=== PATIENT | female | born 1950 | race Caucasian/White ===

== ENCOUNTER → 2018-02-21 | Outpatient (CLI) | payer MEDICARE, BC ==
--- NOTE | 2018-02-21 07:39 | US ---
EXAMINATION TYPE: US kidneys/renal and bladder DATE OF EXAM: 02/21/2018 COMPARISON: CT CLINICAL HISTORY: R31.9 Hematuria. renal cysts per prior CT EXAM MEASUREMENTS: Right Kidney: 10.3 x 4.9 x 3.7 cm Left Kidney: 10.4 x 4.2 x 4.0 cm Post Void Residual Volume: 4.6 mL Right Kidney: parapelvic cyst seen = 1.4 x 1.5 x 0.9cm Left Kidney: mild hydronephrosis especially at upper pole; thin renal cortex Bladder: not fully distended Bilateral Jets seen: yes Normal Post Void Residual: yes IMPRESSION: 1. Mild left-sided hydronephrosis. 2. Right renal parapelvic cyst.
== END | disposition home or self-care (01) ==
LOC: RADUSWWP 06:50
PROVIDERS: ATTEND Internal Medicine Geriatric Medicine
DX: N13.30 Unspecified hydronephrosis (principal); N28.1 Cyst of kidney, acquired
CPT/HCPCS: 76770

== ENCOUNTER 2018-03-14 12:00 | Day surgery (SDC) | payer MEDICARE, BC ==
[2018-03-12 09:49] VITALS: BMI 19.4
[~2018-03-14 12:00] MED LIST: LACTATED RINGERS 1,000 ML IV SCH
[2018-03-14 12:17] VITALS: RESP 16
[2018-03-14] MEDS ORDERED: LIDOCAINE 1% 20 ML VIAL (10MG/ML) FOR IV START INTRADERMA ONE (12:35)
[2018-03-14] MEDS ORDERED: PROPOFOL 10 MG/ML 20 ML VIAL IV ONE (12:36)
--- NOTE | 2018-03-14 12:58 | P.PCN ---
Date of Procedure: 03/14/18 Procedure(s) Performed: BRIEF HISTORY: Patient is a 68-year-old pleasant female, scheduled for an elective colonoscopy as a part of screening for colorectal neoplasia. She does have strong family history of colon cancer diagnosed in her brother and grandfather. PROCEDURE PERFORMED: Colonoscopy. PREOPERATIVE DIAGNOSIS: Screening for colon cancer/family history of colon cancer. IV sedation per Anesthesia. PROCEDURE: After informed consent was obtained, the patient, was brought into the endoscopy unit. IV sedation was administered by Anesthesia under continuous monitoring. Digital rectal examination was normal. Initially the Olympus CF- 160 flexible video colonoscope was then inserted in the rectum, gradually advanced into the cecum without any difficulty. Careful examination was performed as the scope was gradually being withdrawn. Ileocecal valve and the appendiceal orifice were visualized and appeared normal. Prep was excellent. Mucosa of the cecum, ascending colon, transverse colon, descending colon, sigmoid colon, and rectum appeared normal. Scattered sigmoid diverticulosis. Retroflexion was performed in the rectum and no lesions were seen. The patient tolerated the procedure well. IMPRESSION: Normal-appearing colon from rectum to cecum with no evidence of colorectal neoplasia. Scattered sigmoid diverticulosis. RECOMMENDATIONS: Findings of this examination were discussed with the patient as well as his family. She was advised to have a repeat the screening colonoscopy in 5 years because of family history of colon cancer..
[2018-03-14 13:21] VITALS: TEMP 98.6
[2018-03-14 13:22] VITALS: BP 94/60; PULSE 51
== END 2018-03-14 13:48 | disposition home or self-care (01) ==
LOC: ORWHC2ENDO 12:00
PROVIDERS: ATTEND Internal Medicine Gastroenterology
DX: Z12.11 Encounter for screening for malignant neoplasm of colon (principal); K57.30 Diverticulosis of large intestine without perforation or abscess without bleeding; Z80.0 Family history of malignant neoplasm of digestive organs; Z79.899 Other long term (current) drug therapy; Z95.0 Presence of cardiac pacemaker; F39 Unspecified mood [affective] disorder; H40.9 Unspecified glaucoma; R48.0 Dyslexia and alexia; Z88.6 Allergy status to analgesic agent; Z91.012 Allergy to eggs; Z91.011 Allergy to milk products
CPT/HCPCS: J2704; G0105; 45378

== ENCOUNTER → 2018-04-09 | Outpatient (CLI) | payer MEDICARE, BC ==
--- NOTE | 2018-04-09 14:46 | CT ---
EXAMINATION TYPE: CT abdomen pelvis wo/w con DATE OF EXAM: 04/09/2018 HISTORY: Hematuria and unspecified hydronephrosis per order. UTI into right back per patient. CT DLP: 656.30mGycm Automated Exposure Control for Dose Reduction was Utilized. CONTRAST: CT scan of the abdomen and pelvis is performed with oral and without and with IV Contrast, patient in jected with 80 mL of Isovue 300. COMPARISON: CT abdomen pelvis March 03, 2014. Kidney ultrasound February 21, 2018. FINDINGS: LUNG BASES: Partial visualization of pacemaker wires in the right heart system. There is small to tin y inferior pericardial effusion slightly larger versus prior. LIVER/GB: There is 1.2 cm simple appearing thin-walled cyst right hepatic dome axial image 14 series 6 redemonstrated. Interval cholecystectomy changes noted. PANCREAS: No significant abnormality is seen. SPLEEN: No significant abnormality is seen. ADRENALS: No significant abnormality is seen. KIDNEYS: Noncontrast images show no renal calculi bilaterally. Postcontrast images show symmetric cor tical medullary uptake and excretion from both kidneys. There are a few simple appearing cysts lower pole level right kidney axial image 35 series 8. There is mild to moderate fullness of right-sided co llecting system with mild calyceal dilatation. There is anterior axis to the left kidney with mild to moderate left-sided pyelocaliectasis. No disti nct hydroureter is seen. No obvious ureter calculus identified. Bladder is felt within normal limits. BOWEL: Oral contrast reaches level of mid transverse colon. There is no suspicious small or large bow el dilatation. In multiple colonic fecal material is mildly prominent from hepatic flexure through si gmoid colon. Sigmoid colonic diverticulosis is present. UTERUS/ADNEXA: Slightly retroverted uterus is seen. LYMPH NODES: No greater than 1cm abdominal or pelvic lymph nodes are appreciated. OSSEOUS STRUCTURES: Mild to moderate disc space narrowing L2-L3 level is present. OTHER: No significant additional abnormality is seen. IMPRESSION: There is mild to moderate left greater than right bilateral hydronephrosis felt present. There is symmetric cortical medullary uptake and excretion from both kidneys identified. No hydrouret er is present. Consider underlying UPJ strictures. There is no significant change in appearance from the 2014 CT noted. Findings better appreciated on CT versus recent ultrasound.
== END | disposition home or self-care (01) ==
LOC: RADCTMAIN 11:32
PROVIDERS: ATTEND Urology
DX: N13.30 Unspecified hydronephrosis (principal); R31.1 Benign essential microscopic hematuria; Z79.82 Long term (current) use of aspirin; Z91.012 Allergy to eggs
CPT/HCPCS: 82565; 84520; 74178; 36415; Q9967

== ENCOUNTER → 2018-08-12 | Outpatient (CLI) | payer MEDICARE, BC ==
--- NOTE | 2018-08-13 11:19 | MM ---
Reason for exam: screening (asymptomatic). Last mammogram was performed 1 year and 7 months ago. History: Patient is postmenopausal. Took hormonal contraceptives for 7 years beginning at age 16. Physical Findings: A clinical breast exam by your physician is recommended on an annual basis and results should be correlated with mammographic findings. MG 3D Screening Mammo W/Cad Bilateral CC and MLO view(s) were taken. Prior study comparison: January 22, 2017, bilateral MG 3d screening mammo w/cad. October 05, 2015, bilateral MG screening mammo w CAD. The breast tissue is heterogeneously dense. This may lower the sensitivity of mammography. Benign appearing calcifictions in the left breast. No suspicious abnormality. No significant changes when compared with prior studies. ASSESSMENT: Benign, BI-RAD 2 RECOMMENDATION: Routine screening mammogram of both breasts in 1 year.
== END | disposition home or self-care (01) ==
LOC: RADMAMWWP 10:43
PROVIDERS: ATTEND Internal Medicine Geriatric Medicine
DX: Z12.31 Encounter for screening mammogram for malignant neoplasm of breast (principal)
CPT/HCPCS: 77063; 77067

== ENCOUNTER → 2019-04-15 | Outpatient (CLI) | payer MEDICARE, BC ==
--- NOTE | 2019-04-15 11:52 | USB ---
Reason for exam: clinical finding. History: Patient is postmenopausal. Took hormonal contraceptives for 7 years beginning at age 16. Indicated problem(s): lump or thickening in the left breast. Physical Findings: Nurse Summary: Patient complains of left breast pain, upper outer quadrant into axilla, lump intermittent x 2 months (nurse mj). US Breast LT Left complete breast ultrasound includes all four quadrants, the retroareolar region and axilla. Finding demonstrates no cystic or solid lesion seen. These results were verbally communicated with the patient and result sheet given to the patient on 04/15/19. ASSESSMENT: Benign, BI-RAD 2 RECOMMENDATION: Return to routine screening mammogram schedule for both breasts. Manage patient on a clinical basis. Back on schedule for July 2019.
== END | disposition home or self-care (01) ==
LOC: RADUSWWP 10:13
PROVIDERS: ATTEND Internal Medicine Geriatric Medicine
DX: N63.20 Unspecified lump in the left breast, unspecified quadrant (principal)

== ENCOUNTER → 2019-04-15 | Outpatient (CLI) | payer MEDICARE, BC ==
--- NOTE | 2019-04-15 11:44 | XR ---
EXAMINATION TYPE: XR shoulder complete LT DATE OF EXAM: 04/15/2019 CLINICAL HISTORY: History of frozen shoulder with left shoulder pain for 2 months. TECHNIQUE: Three views of the left shoulder are obtained. COMPARISON: None. FINDINGS: Demineralization is present. There is no acute fracture/dislocation evident in the left sh oulder. The acromioclavicular joint appears within normal limits. Distal acromion morphology unremar kable. Mild narrowing glenohumeral joint without significant spurring. Subchondral cystic change sup erolateral humeral head. The visualized ribs are intact and unremarkable. Overlying pacemaker partial ly imaged. IMPRESSION: As above.
== END | disposition home or self-care (01) ==
LOC: RADXRMAIN 11:16
PROVIDERS: ATTEND Internal Medicine Geriatric Medicine
DX: M81.0 Age-related osteoporosis without current pathological fracture (principal); M25.812 Other specified joint disorders, left shoulder

== ENCOUNTER → 2019-09-16 | Outpatient (CLI) | payer MEDICARE, BC ==
[2019-09-16 11:38] LABS: INR 0.9 (<1.2); Partial Thromboplastin Time 23.9 sec (22.0-30.0); Prothrombin Time 9.9 sec (9.0-12.0)
[2019-09-16 16:52] LABS: Cardiolipin IgA Antibody 2.7 U/mL
[2019-09-16 16:53] LABS: Cardiolipin Ab IgG Interp NEGATIVE (NEGATIVE); Cardiolipin Ab IgM Interp NEGATIVE (NEGATIVE); Cardiolipin IgM Antibody 0.4 U/mL
[2019-09-17 13:32] LABS: APTT 40 Sec(s) (<43); Dilute Russell Viper Venom 36 Sec(s) (<44)
== END | disposition home or self-care (01) ==
LOC: LABWHC1 10:11
PROVIDERS: ATTEND Psychiatry & Neurology Neurology
DX: I67.9 Cerebrovascular disease, unspecified (principal); R90.89 Other abnormal findings on diagnostic imaging of central nervous system; I63.9 Cerebral infarction, unspecified
CPT/HCPCS: 36415; 82607; 83090; 85610; 85613; 85652; 85730; 86147; 86618

== ENCOUNTER 2019-10-07 10:26 | Day surgery (SDC) | payer MEDICARE, BC ==
[2019-10-05 18:23] VITALS: BMI 20.2
[~2019-10-07 10:26] MED LIST changes: +LIDOCAINE 1% (10MG/ML) FOR IV START INTRADERMA PRN
[2019-10-07 11:07] VITALS: TEMP 98.2
[2019-10-07] MEDS ORDERED: PROPOFOL 10 MG/ML 20 ML VIAL IV ONE (12:10)
--- NOTE | 2019-10-07 12:31 | P.PCN ---
Date of Procedure: 10/07/19 Procedure(s) Performed: BRIEF HISTORY: Patient is a 69-year-old pleasant white female scheduled for an elective colonoscopy as a part of evaluation of form chronic diarrhea for the last 1 year duration. PROCEDURE PERFORMED: Colonoscopy with random biopsy and snare polypectomy. PREOPERATIVE DIAGNOSIS: Chronic diarrhea of 1 year duration. IV sedation per Anesthesia. PROCEDURE: After informed consent was obtained, the patient, was brought into the endoscopy unit. IV sedation was administered by Anesthesia under continuous monitoring. Digital rectal examination was normal. Initially the Olympus CF-160 flexible video colonoscope was then inserted in the rectum, gradually advanced into the cecum without any difficulty. Careful examination was performed as the scope was gradually being withdrawn. Ileocecal valve and the appendiceal orifice were visualized and appeared normal. Prep was excellent. Mucosa of the cecum appeared normal. In the ascending colon there was a 1 cm flat polyp that was removed by snare polypectomy. Rest of the, ascending colon, transverse colon, descending colon, sigmoid colon, and rectum appeared normal. Random biopsies were done from the descending colon to rule out microscopic/collagenous colitis. Retroflexion was performed in the rectum and no lesions were seen. The patient tolerated the procedure well. IMPRESSION: 1 cm flat ascending colon polyp status post polypectomy Rest of the colon appeared normal RECOMMENDATIONS: Findings of this examination were discussed with the patient as well as her family. She was advised to follow with the biopsy results and she'll be seen in office in 3-4 weeks..
[2019-10-07 13:13] VITALS: BP 110/57; PULSE 58; RESP 18
== END 2019-10-07 13:25 | disposition home or self-care (01) ==
LOC: ORWHC2ENDO 10:26
PROVIDERS: ATTEND Internal Medicine Gastroenterology
DX: K63.5 Polyp of colon (principal); K63.89 Other specified diseases of intestine; K08.409 Partial loss of teeth, unspecified cause, unspecified class; F32.9 Major depressive disorder, single episode, unspecified; F03.90 Unspecified dementia, unspecified severity, without behavioral disturbance, psychotic disturbance, mood disturbance, and anxiety; Z88.1 Allergy status to other antibiotic agents; Z79.899 Other long term (current) drug therapy; Z88.6 Allergy status to analgesic agent; Z90.49 Acquired absence of other specified parts of digestive tract; Z90.89 Acquired absence of other organs; Z98.890 Other specified postprocedural states
CPT/HCPCS: 88305; 45380; 45385; J2704

== ENCOUNTER → 2019-10-09 | Outpatient (CLI) | payer MEDICARE, BC ==
--- NOTE | 2019-10-12 12:02 | MM ---
Reason for exam: screening (asymptomatic). Last mammogram was performed 1 year and 2 months ago. History: Patient is postmenopausal. Took hormonal contraceptives for 7 years beginning at age 16. Physical Findings: A clinical breast exam by your physician is recommended on an annual basis and results should be correlated with mammographic findings. MG 3D Screening Mammo W/Cad Bilateral CC and MLO view(s) were taken. Prior study comparison: August 12, 2018, bilateral MG 3d screening mammo w/cad. January 22, 2017, bilateral MG 3d screening mammo w/cad. The breast tissue is heterogeneously dense. This may lower the sensitivity of mammography. A circumscribed 4mm isodense nodule central left breast not clearly seen previously, suspected cyst. 6 month follow up recommended. Right sided moles redemonstrated. Medial left skin calcifications. ASSESSMENT: Probably benign, BI-RAD 3 RECOMMENDATION: Follow-up diagnostic mammogram of the left breast in 6 months.
== END | disposition home or self-care (01) ==
LOC: RADMAMWWP 14:34
PROVIDERS: ATTEND Internal Medicine Geriatric Medicine
DX: Z12.31 Encounter for screening mammogram for malignant neoplasm of breast (principal)
CPT/HCPCS: 77063; 77067

== ENCOUNTER → 2020-04-12 | Outpatient (CLI) | payer MEDICARE ==
--- NOTE | 2020-04-12 11:55 | MM ---
Reason for exam: follow-up at short interval from prior study. Last mammogram was performed 6 months ago. History: Patient is postmenopausal. Benign excisional biopsy of the right breast. Took hormonal contraceptives for 7 years beginning at age 16. Physical Findings: Nurse did not find any significant physical abnormalities on exam. MG 3D Diag Mammo W/Cad LT CC and MLO view(s) were taken of the left breast. Prior study comparison: October 09, 2019, bilateral MG 3d screening mammo w/cad. August 12, 2018, bilateral MG 3d screening mammo w/cad. The breast tissue is heterogeneously dense. This may lower the sensitivity of mammography. Previous abnormality is less conspicuous. No significant new findings when compared with previous films. These results were verbally communicated with the patient and result sheet given to the patient on 04/12/20. ASSESSMENT: Benign, BI-RAD 2 RECOMMENDATION: Return to routine screening mammogram schedule for both breasts. Back on schedule for September 2020.
== END | disposition home or self-care (01) ==
LOC: RADMAMWWP 10:20
PROVIDERS: ATTEND Internal Medicine Geriatric Medicine
DX: R92.8 Other abnormal and inconclusive findings on diagnostic imaging of breast (principal)
CPT/HCPCS: 77065; G0279; 77061

== ENCOUNTER → 2022-01-31 | Outpatient (CLI) | payer MEDICARE ==
--- NOTE | 2022-02-01 10:19 | MM ---
Reason for Exam: Screening (asymptomatic). Last mammogram was performed 2 year(s) and 4 month(s) ago. Patient History: Menarche at age 10. First Full-Term at age 23. Postmenopausal. Patient has history of breast feeding. Hormonal Contraceptives, starting at age 16 for 7 years. Benign Excisional Biopsy on the right side. Risk Values: Denise 5 year model risk: 2.3%. NCI Lifetime model risk: 5.3%. Prior Study Comparison: 08/12/2018 Bilateral Screening Mammogram, [facility]. 10/09/2019 Bilateral Screening Mammogram, [facility]. 04/12/2020 Left Diagnostic Mammogram, [facility]. Tissue Density: There are scattered fibroglandular densities. Findings: Analyzed By CAD. Chronic nodularity is within the left breast. No suspicious groups of microcalcifications, spiculated or lobular masses, architectural distortion or other secondary signs of malignancy are mammographically apparent. Overall Assessment: Benign, BI-RAD 2 Management: Screening Mammogram of both breasts in 1 year. A negative mammogram report should not preclude additional follow up of suspicious palpable abnormalities. Patient should continue monthly self breast exam. A clinical breast exam by your physician is recommended on an annual basis and results should be correlated with mammographic findings. Electronically signed and approved by: Vishal Seaman D.O. Radiologis
== END | disposition home or self-care (01) ==
LOC: RADMAMWWP 12:48
PROVIDERS: ATTEND Internal Medicine Geriatric Medicine
DX: Z12.31 Encounter for screening mammogram for malignant neoplasm of breast (principal)
CPT/HCPCS: 77063; 77067

== ENCOUNTER 2022-08-10 10:36 | Observation (INO) | payer MEDICARE ==
[2022-08-10 11:17] LABS: Basophils % (A) 0 %; Eosinophils # (A) 0.1 k/uL (0-0.7); Eosinophils % (A) 2 %; HCT 39.8 % (34.0-46.0); HGB 13.5 gm/dL (11.4-16.0); Lymphocytes # (A) 1.3 k/uL (1.0-4.8); Lymphocytes % (A) 22 %; MCH 32.7 pg (25.0-35.0); MCV 96.3 fL (80.0-100.0); Mean Platelet Volume 7.6; Monocytes # (A) 0.3 k/uL (0-1.0); Monocytes % (A) 5 %; Neutrophils # (A) 4.1 k/uL (1.3-7.7); Neutrophils % (A) 68 %; Platelet Count 184 k/uL (150-450); RBC 4.13 m/uL (3.80-5.40); RDW 12.5 % (11.5-15.5)
[2022-08-10 11:29] LABS: Albumin 3.9 g/dL (3.5-5.0); Calcium 8.9 mg/dL (8.4-10.2); Potassium 4.2 mmol/L (3.5-5.1); Total Bilirubin 0.6 mg/dL (0.2-1.3); Total Protein 6.5 g/dL (6.3-8.2)
[2022-08-10 11:39] LABS: Partial Thromboplastin Time 24.1 sec (22.0-30.0); Prothrombin Time 10.4 sec (9.0-12.0)
--- NOTE | 2022-08-10 11:56 | XR ---
EXAMINATION TYPE: XR chest 2V DATE OF EXAM: 08/10/2022 COMPARISON: None HISTORY: 72-year-old female with pain, pressure in chest with exertion TECHNIQUE: PA and lateral views FINDINGS: Left anterior chest wall pacemaker generator with right atrial and ventricular leads. Heart upper francisco its of normal in size. Mild atherosclerotic arch calcifications. Hyperinflation. No consolidation or pleural effusion. Cholecystectomy clips. IMPRESSION: Borderline heart size. 2-lead pacemaker on the left. COPD. Otherwise, no acute process seen.
[2022-08-10] MEDS ORDERED: NITROGLYCERIN OINT 1 INCH/GM PACKET TOPICAL STA (12:29)
[2022-08-10] MEDS ORDERED: ASPIRIN 81 MG PO STA (12:29)
[2022-08-10] MEDS ORDERED: NITROGLYCERIN SL TABS 0.4 MG TAB SUBLINGUAL PRN (12:38)
--- NOTE | 2022-08-10 12:38 | ED ---
General Adult HPI - General Chief complaint: Chest Pain Stated complaint: Chest Pain Time Seen by Provider: 08/10/22 10:40 Source: patient, RN notes reviewed, old records reviewed Mode of arrival: ambulatory Limitations: no limitations - History of Present Illness Initial comments: This is a 72-year-old female presents emergency department stating that she has no history of any cardiac disease no history of diabetes hypertension high cholesterol or smoking history. Patient denies any family history of heart disease. Patient states she was at the gym exercising for about an hour when she stood up after exercising and had significant chest pressure felt like somebody was pushing on her quite uncomfortably. Patient states that last for at least a half an hour. Patient states she was having a little first breath but there was no radiation of the pain. Patient denied any diaphoretic episodes per patient denies any nausea patient presents any recent fever chills or cough per patient denies any pain that was similar in the past per patient denies any swelling to the legs or calf tenderness. Patient denies headache patient denies numbness weakness - Related Data Home Medications Medication Instructions Recorded Confirmed lamoTRIgine [LaMICtal] 200 mg PO HS 10/06/13 10/05/19 traZODone HCL [Desyrel] 50 mg PO HS 10/06/13 10/05/19 LORazepam [Ativan] 1 mg PO DAILY PRN 03/12/18 10/05/19 cycloSPORINE 0.05% OPHTH SOLN 1 applicator BOTH EYES Q12H 03/12/18 10/05/19 [Restasis] Donepezil HCl [Aricept] 10 mg PO HS 10/05/19 10/05/19 Memantine [Namenda] 10 mg PO BID 10/05/19 10/05/19 Multivitamins, Thera [Multivitamin 1 tab PO DAILY 10/05/19 10/05/19 (formulary)] Protandim Supplement 1 tab PO DAILY 10/05/19 Vortioxetine Hydrobromide 5 mg PO DAILY 10/05/19 10/05/19 [Trintellix] Allergies Allergy/AdvReac Type Severity Reaction Status Date / Time aspirin AdvReac Abdominal Verified 08/10/22 10:41 Pain Review of Systems ROS Statement: Those systems with pertinent positive or pertinent negative responses have been documented in the HPI. ROS Other: All systems not noted in ROS Statement are negative. Past Medical History Past Medical History: Blood Disorder, Eye Disorder, Hearing Disorder / Deafness, Skin Disorder Additional Past Medical History / Comment(s): PAST HX OF ANEMIA. Osteoporosis. Hx of Blepharospasm BOTH EYES, GETS BOTOX. GLAUCOMA BILAT EYES, HX SSS, HAS PACEMAKER ([employer]). RECENT UTI-FINISHED ANTIBIOTICS, OLD HX OF NECK INJ 2009, RESOLVED. HAVING DIZZY SPELLS. DYSLEXIC History of Any Multi-Drug Resistant Organisms: None Reported Past Surgical History: Appendectomy, Breast Surgery, Cholecystectomy, Pacemaker, Tonsillectomy, Tubal Ligation Additional Past Surgical History / Comment(s): EXC RT BREAST CYST. UTERINE Polyp REMOVED, COLONOSCOPY Past Anesthesia/Blood Transfusion Reactions: Motion Sickness Type of Cardiac Device: Permanent Pacemaker Device Placement Date:: 10/08/13 Past Psychological History: Anxiety, Bipolar, Depression, Panic Disorder Smoking Status: Never smoker Past Alcohol Use History: Occasional Past Drug Use History: None Reported - Past Family History Brother(s) Family Medical History: Cancer Additional Family Medical History / Comment(s): "1/2 BROTHER"-COLON General Exam - General Exam Comments Initial Comments: GENERAL: Patient is well-developed and well-nourished. Patient is nontoxic and well- hydrated and is in mild distress. ENT: Neck is soft and supple. No significant lymphadenopathy is noted. Oropharynx is clear. Moist mucous membranes. Neck has full range of motion without eliciting any pain. EYES: The sclera were anicteric and conjunctiva were pink and moist. Extraocular movements were intact and pupils were equal round and reactive to light. Eyelids were unremarkable. PULMONARY: Unlabored respirations. Good breath sounds bilaterally. No audible rales rhonchi or wheezing was noted. CARDIOVASCULAR: There is a regular rate and rhythm without any murmurs gallops or rubs. ABDOMEN: Soft and nontender with normal bowel sounds. SKIN: Skin is clear with no lesions or rashes and otherwise unremarkable. NEUROLOGIC: Patient is alert and oriented x3. Cranial nerves II through XII are grossly intact. Motor and sensory are also intact. Normal speech, volume and content. Symmetrical smile. MUSCULOSKELETAL: Normal extremities with adequate strength and full range of motion. No lower extremity swelling or edema. No calf tenderness. LYMPHATICS: No significant lymphadenopathy is noted PSYCHIATRIC: Normal psychiatric evaluation. Limitations: no limitations Course Vital Signs 08/10/22 10:39 Temperature 98.2 F Pulse Rate 82 Respiratory 20 Rate Blood Pressure 104/53 O2 Sat by Pulse 99 Oximetry Medical Decision Making - Medical Decision Making EKG was interpreted by myself shows a paced rhythm at 68 bpm HI interval is 214 QRS is 144 QT interval 441 QTC is 458. Patient's EKG shows no ST segment elevation or depression. Was pt. sent in by a medical professional or institution (, [facility], HEATING REPAIR TECHNICIAN, urgent care, hospital, or alf...) When possible be specific @ -[No] Did you speak to anyone other than the patient for history (EMS, parent, family, police, friend...)? What history was obtained from this source @ - gives most of the history because the patient has dementia Did you review nursing and triage notes (agree or disagree)? Why? @ -[I reviewed and agree with nursing and triage notes] Were old charts reviewed (outside hosp., previous admission, EMS record, old EKG, old radiological studies, urgent care reports/EKG's, alf records)? Report findings @ -Reviewed prior radiological studies prior laboratory work and prior charting. Differential Diagnosis (chest pain, altered mental status, abdominal pain women, abdominal pain men, vaginal bleeding, weakness, fever, dyspnea, syncope, headache, dizziness, GI bleed, back pain, seizure, CVA, palpatations, mental health, musculoskeletal)? @ -MDM diagnosis chest pain EKG interpreted by me (3pts min.). @ -[As above] X-rays interpreted by me (1pt min.). @ -Chest x-ray was interpreted by myself shows no acute abnormality there is a small pleural effusion on the left CT interpreted by me (1pt min.). @ -[None done] U/S interpreted by me (1pt. min.). @ -[None done] What testing was considered but not performed or refused? (CT, X-rays, U/S, labs)? Why? @ -[None] What meds were considered but not given or refused? Why? @ -[None] Did you discuss the management of the patient with other professionals (professionals i.e. [facility] Salgado, HEATING REPAIR TECHNICIAN, lab, RT, psych nurse, clinical social work therapist, press feeder, teacher, public affairs officer, case making machine operator)? Give summary @ -[No] Was smoking cessation discussed for >3mins.? @ -[No] Was critical care preformed (if so, how long)? @ -[No] Were there social determinants of health that impacted care today? How? (Homelessness, low income, unemployed, alcoholism, drug addiction, transportation, low edu. Level, literacy, decrease access to med. care, shelter, rehab)? @ -[No] Was there de-escalation of care discussed even if they declined (Discuss DNR or withdrawal of care, Hospice)? DNR status @ -[No] What co-morbidities impacted this encounter? (DM, HTN, Smoking, COPD, CAD, Cancer, CVA, ARF, Chemo, Hep., AIDS, mental health diagnosis, sleep apnea, morbid obesity)? @ -[None] Was patient admitted / discharged? Hospital course, mention meds given and route, prescriptions, significant lab abnormalities, going to OR and other pertinent info. @ -Shouldn't had significant chest pain earlier today after she was exercising. Patient states the pain lasts about half an hour. Patient had no pain while she was in the emergency department. [facility] and the patient wrote admitting orders I consulted cardiology Undiagnosed new problem with uncertain prognosis? @ -[No] Drug Therapy requiring intensive monitoring for toxicity (Heparin, Nitro, Insulin, Cardizem)? @ -[No] Were any procedures done? @ -[No] Diagnosis/symptom? @ -Chest pain Acute, or Chronic, or Acute on Chronic? @ -Acute Uncomplicated (without systemic symptoms) or Complicated (systemic symptoms)? @ -Complicated Side effects of treatment? @ -[No] Exacerbation, Progression, or Severe Exacerbation? @ -[No] Poses a threat to life or bodily function? How? (Chest pain, USA, MS, pneumonia, PE, COPD, DKA, ARF, appy, cholecystitis, CVA, Diverticulitis, Homicidal, Suicidal, threat to staff... and all critical care pts) @ -Yes this could lead to an MS which could lead to end organ dysfunction secondary to poor perfusion - Lab Data Result diagrams: 08/10/22 11:06 08/10/22 11:06 Lab Results 08/10/22 08/10/22 08/10/22 Range/Units 11:06 11:06 11:06 WBC 6.0 (3.8-10.6) k/uL RBC 4.13 (3.80-5.40) m/uL Hgb 13.5 (11.4-16.0) gm/dL Hct 39.8 (34.0-46.0) % MCV 96.3 (80.0-100.0) fL MCH 32.7 (25.0-35.0) pg MCHC 34.0 (31.0-37.0) g/dL RDW 12.5 (11.5-15.5) % Plt Count 184 (150-450) k/uL MPV 7.6 Neutrophils % 68 % Lymphocytes % 22 % Monocytes % 5 % Eosinophils % 2 % Basophils % 0 % Neutrophils # 4.1 (1.3-7.7) k/uL Lymphocytes # 1.3 (1.0-4.8) k/uL Monocytes # 0.3 (0-1.0) k/uL Eosinophils # 0.1 (0-0.7) k/uL Basophils # 0.0 (0-0.2) k/uL PT 10.4 (9.0-12.0) sec INR 1.0 (<1.2) APTT 24.1 (22.0-30.0) sec Sodium 135 L (137-145) mmol/L Potassium 4.2 (3.5-5.1) mmol/L Chloride 101 (98-107) mmol/L Carbon Dioxide 22 (22-30) mmol/L Anion Gap 12 mmol/L BUN 23 H (7-17) mg/dL Creatinine 1.02 (0.52-1.04) mg/dL Est GFR (CKD-EPI)AfAm 63 (>60 ml/min/1.73 sqM) Est GFR (CKD-EPI)NonAf 55 (>60 ml/min/1.73 sqM) Glucose 96 (74-99) mg/dL Calcium 8.9 (8.4-10.2) mg/dL Total Bilirubin 0.6 (0.2-1.3) mg/dL AST 22 (14-36) U/L ALT 15 (4-34) U/L Alkaline Phosphatase 52 (38-126) U/L Troponin I (0.000-0.034) ng/mL Total Protein 6.5 (6.3-8.2) g/dL Albumin 3.9 (3.5-5.0) g/dL 08/10/22 Range/Units 11:06 WBC (3.8-10.6) k/uL RBC (3.80-5.40) m/uL Hgb (11.4-16.0) gm/dL Hct (34.0-46.0) % MCV (80.0-100.0) fL MCH (25.0-35.0) pg MCHC (31.0-37.0) g/dL RDW (11.5-15.5) % Plt Count (150-450) k/uL MPV Neutrophils % % Lymphocytes % % Monocytes % % Eosinophils % % Basophils % % Neutrophils # (1.3-7.7) k/uL Lymphocytes # (1.0-4.8) k/uL Monocytes # (0-1.0) k/uL Eosinophils # (0-0.7) k/uL Basophils # (0-0.2) k/uL PT (9.0-12.0) sec INR (<1.2) APTT (22.0-30.0) sec Sodium (137-145) mmol/L Potassium (3.5-5.1) mmol/L Chloride (98-107) mmol/L Carbon Dioxide (22-30) mmol/L Anion Gap mmol/L BUN (7-17) mg/dL Creatinine (0.52-1.04) mg/dL Est GFR (CKD-EPI)AfAm (>60 ml/min/1.73 sqM) Est GFR (CKD-EPI)NonAf (>60 ml/min/1.73 sqM) Glucose (74-99) mg/dL Calcium (8.4-10.2) mg/dL Total Bilirubin (0.2-1.3) mg/dL AST (14-36) U/L ALT (4-34) U/L Alkaline Phosphatase (38-126) U/L Troponin I <0.012 (0.000-0.034) ng/mL Total Protein (6.3-8.2) g/dL Albumin (3.5-5.0) g/dL Disposition Clinical Impression: Chest pain Disposition: ADMITTED IP TO THIS HOSP Referrals: Kevin Euceda MD [Primary Care Provider] - 1-2 days Time of Disposition: 12:38
[2022-08-10] MEDS: NITROGLYCERIN OINT 1 INCH/GM PACKET TOPICAL SCH (18:20)
[2022-08-10] MEDS: SODIUM CHLORIDE 0.9% 1,000 ML IV SCH (21:50)
[2022-08-11 00:33] VITALS: TEMP 98.1
[2022-08-11] MEDS: NITROGLYCERIN OINT 1 INCH/GM PACKET TOPICAL SCH ×3 (00:35→12:16)
[2022-08-11] MEDS ORDERED: lamoTRIgine 100 MG TAB PO SCH (01:06)
[2022-08-11] MEDS ORDERED: ACETAMINOPHEN TAB 325 MG TAB PO PRN (01:07)
[2022-08-11] MEDS ORDERED: ONDANSETRON 4 MG/2 ML VIAL IVP PRN (01:07)
[2022-08-11] MEDS: cycloSPORINE 0.05% OPHTH 0.4 ML DROPERETTE BOTH EYES SCH ×2 (01:29→13:07)
--- NOTE | 2022-08-11 01:55 | P.HPIM ---
History of Present Illness H&P Date: 08/10/22 Chief Complaint: Chest pressure Patient is a 72-year-old female with a known history of sick sinus syndrome and pacemaker placement, follows with cardiology as an outpatient, hearing disorder/deafness, anxiety/depression bipolar disorder and panic disorder and occasional alcohol use presents to ER with complaints of chest pressure. Patient states that she stood up after exercising and suddenly felt mid retrosternal chest pressure. Associate with mild shortness of breath. No radiation of the pain. Patient felt like someone sitting on the chest. Symptoms lasted about half an hour. Denied any diaphoresis. No leg swelling. No recent illnesses. No fever no chills. No cough or sputum production. Denies any leg swelling or calf tenderness. Patient presented to ER for evaluation. Chest x-ray showed borderline heart size. 2-lead pacemaker on the left. COPD. Otherwise no acute process seen. EKG showed electronic atrial pacer. Laboratory data showed WBC 6.0 hemoglobin 13.5 and platelets 184 Sodium 135 potassium 4.2 chloride 101 bicarb is 22 BUN 23 and creatinine 1.02 liver enzymes are elevated troponin x2 negative and albumin 3.9. Review of Systems Constitutional: Patient denies any fever or chills . no Generalized weakness. Abdomen: Patient denied any nausea or vomiting or abd. pain Cardiovascular: Patient denies any chest pain or short of breath no palpitations. Respiratory: patient denied any cough . no sputum production. No shortness of breath Neurologic: Patient denied any numbness or tingling headache. Musculoskeletal: Patient denies any complaints of joint swelling or deformity. Skin: Negative Psychiatric: anxiety Endocrine: No heat or cold intolerance. No recent weight gain. Genitourinary: No dysuria or hematuria. All other 14 point ROS negative except the above Past Medical History Past Medical History: Blood Disorder, Eye Disorder, Hearing Disorder / Deafness, Skin Disorder Additional Past Medical History / Comment(s): PAST HX OF ANEMIA. Osteoporosis. Hx of Blepharospasm BOTH EYES, GETS BOTOX. GLAUCOMA BILAT EYES, HX SSS, HAS P GAUDENCIO ([employer]). RECENT UTI-FINISHED ANTIBIOTICS, OLD HX OF NECK INJ 2009, RESOLVED. HAVING DIZZY SPELLS. DYSLEXIC History of Any Multi-Drug Resistant Organisms: None Reported Past Surgical History: Appendectomy, Breast Surgery, Cholecystectomy, Pacemaker, Tonsillectomy, Tubal Ligation Additional Past Surgical History / Comment(s): EXC RT BREAST CYST. UTERINE Polyp REMOVED, COLONOSCOPY Past Anesthesia/Blood Transfusion Reactions: Motion Sickness Type of Cardiac Device: Permanent Pacemaker Device Placement Date:: 10/08/13 Past Psychological History: Anxiety, Bipolar, Depression, Panic Disorder Smoking Status: Never smoker Past Alcohol Use History: Occasional Past Drug Use History: None Reported - Past Family History Brother(s) Family Medical History: Cancer Additional Family Medical History / Comment(s): "1/2 BROTHER"-COLON Medications and Allergies Home Medications Medication Instructions Recorded Confirmed Type lamoTRIgine [LaMICtal] 200 mg PO HS 10/06/13 08/10/22 History traZODone HCL [Desyrel] 50 mg PO HS 10/06/13 08/10/22 History LORazepam [Ativan] 0.5 - 1 mg PO BID PRN 03/12/18 08/10/22 History cycloSPORINE 0.05% OPHTH SOLN 1 drop BOTH EYES Q12H 03/12/18 08/10/22 History [Restasis] Donepezil HCl [Aricept] 10 mg PO HS 10/05/19 08/10/22 History Memantine [Namenda] 10 mg PO BID 10/05/19 08/10/22 History Alendronate Sodium [Fosamax] 70 mg PO FR 08/10/22 08/10/22 History FLUoxetine HCL 20 mg PO DAILY 08/10/22 08/10/22 History Pravastatin Sodium [Pravachol] 20 mg PO DAILY 08/10/22 08/10/22 History Allergies Allergy/AdvReac Type Severity Reaction Status Date / Time aspirin AdvReac Abdominal Verified 08/10/22 14:26 Pain Physical Exam Vitals: Vital Signs Temp Pulse Resp BP Pulse Ox 08/10/22 12:38 50 L 18 110/56 98 08/10/22 10:39 98.2 F 82 20 104/53 99 Intake and Output 08/09/22 08/10/22 08/10/22 22:59 06:59 14:59 Other: Weight 60.781 kg PHYSICAL EXAMINATION: Patient is lying in the bed comfortably, no acute distress, awake alert and oriented.. HEENT: Normocephalic. Neck is supple. Pupils reactive. Nostrils clear. Oral cavity is moist. Neck reveals no JVD, carotid bruits, or thyromegaly. CHEST EXAMINATION: Trachea is central. Symmetrical expansion. Lung lipscomb clear to auscultation and percussion. CARDIAC: Normal S1, S2 with no gallops. No murmurs ABDOMEN: Soft. Bowel sounds present. Nontender. No organomegaly. No abdominal bruits. Extremities: reveal no edema. No clubbing or cyanosis Neurologically awake, alert, oriented x3 with well-coordinated movements. No focal deficits noted Skin: No rash or skin lesions. Psychiatric: Coperative. Nonsuicidal, Musculoskeletal: No joint swelling or deformity. Normal range of motion. Results CBC & Chem 7: 08/10/22 11:06 08/10/22 11:06 Labs: Abnormal Lab Results - Last 24 Hours (Table) 08/10/22 Range/Units 11:06 Sodium 135 L (137-145) mmol/L BUN 23 H (7-17) mg/dL Thrombosis Risk Factor Assmnt - DVT/VTE Prophylaxis DVT/VTE Prophylaxis: Pharmacologic Prophylaxis ordered Assessment and Plan Assessment: Chest pressure and exertional dyspnea. Rule out ACS Sick sinus syndrome and history of permanent pacemaker placement Anxiety/depression bipolar disorder and panic disorder. DVT prophylaxis with heparin subcu Plan: Patient will be continued on telemetry monitoring. Serial EKG and troponin x3. Follow-up TSH level. Continue with IV hydration with normal saline. Continue with home medications. Cardiology was consulted for evaluation. Time with Patient: Greater than 30
[2022-08-11 06:41] LABS: Amorphous Sediment,Urine Rare /hpf; Appearance,Urine Clear (Clear); Bilirubin,Urine Negative (Negative); Blood,Urine Negative (Negative); Color,Urine Yellow; Glucose,Urine (UA) Negative (Negative); Ketones,Urine Trace (Negative); Leukocyte Esterase,Urine Large (Negative); Mucus,Urine Rare /hpf; Nitrite,Urine Negative (Negative); PH, Urine 5.5 (5.0-8.0); Protein,Urine Negative (Negative); RBC,Urine 1 /hpf (0-5); Specific Gravity,Urine 1.017 (1.001-1.035); Squamous Epithelial Cell,Urine 1 /hpf (0-4); Urobilinogen,Urine <2.0 mg/dL (<2.0); WBC,Urine 15 /hpf (0-5)
[2022-08-11] MEDS ORDERED: PANTOPRAZOLE 40 MG TABLET PO SCH (07:30)
[2022-08-11] MEDS ORDERED: FLUoxetine HCL 20 MG CAP PO SCH (09:00)
[2022-08-11] MEDS ORDERED: HEPARIN SODIUM,PORCINE/PF 5,000 UNIT/0.5 ML SYRINGE SQ SCH (09:00)
[2022-08-11] MEDS ORDERED: MEMANTINE 10 MG TAB PO SCH (09:00)
[2022-08-11] MEDS ORDERED: PRAVASTATIN SODIUM 20 MG TAB PO SCH (09:00)
[2022-08-11 09:36] VITALS: BP 103/63; PULSE 53
[2022-08-11] MEDS: ASPIRIN 325 MG TAB PO SCH ×2 (09:42→09:45)
[2022-08-11 11:13] LABS: Chol/HDL Ratio 3.27 Ratio; LDL Cholesterol,Calculated 85.3 mg/dL (0.0-131.0)
[2022-08-11] MEDS: SODIUM CHLORIDE 0.9% 1,000 ML IV SCH (12:16)
[2022-08-11 14:07] VITALS: RESP 18
--- NOTE | 2022-08-11 14:10 | CONS ---
CONSULTATION CHIEF COMPLAINT: Chest pain. HISTORY OF PRESENT ILLNESS: This is a 72-year-old lady, with history of sick sinus syndrome, status post permanent pacemaker; anxiety; depression; bipolar mood disorder; and occasional alcohol use; who presented to hospital complaining of chest pain. She had exercises regularly, in fact at [employer], exercising for almost an hour and as she was getting ready to leave as she was walking, she had chest pressure with some shortness of breath due to which she was concerned and came to the ER. She is admitted for further evaluation. An EKG showed paced rhythm with right bundle branch block. Three sets of troponins are negative. Her LDL cholesterol is 85. The patient already had a stress test scheduled for this coming . The patient's chest pain seems atypical, may be related to anxiety. I advised her to ambulate and if she is feeling fine, discharge her home and keep the followup for the stress test and follow up with Cardiology. PAST MEDICAL HISTORY: Significant for sick sinus syndrome, status post permanent pacemaker, and dyslipidemia. CURRENT MEDICATIONS: Include: 1. Pravachol 20 daily. 2. Fluoxetine. 3. Restasis. 4. Ativan. 5. Fosamax. 6. Desyrel. 7. Namenda. 8. Lamictal. 9. Aricept. ALLERGIES: Aspirin. FAMILY HISTORY: Negative for premature coronary artery disease. SOCIAL HISTORY: Negative for current smoking, EtOH abuse, or drug abuse. REVIEW OF SYSTEMS: 14 out of 14 review of systems has been performed. Pertinents are as documented. PHYSICAL EXAMINATION: GENERAL: Comfortable at rest. VITAL SIGNS: Stable. NECK: There is no jugular venous distention. Carotid upstroke is normal. There is no bruit. CHEST: Exam reveals good air entry bilaterally. HEART: Exam reveals first and second heart sounds and a systolic murmur at the apex. ABDOMEN: Soft. EXTREMITIES: Did not reveal any edema. Peripheral pulses are felt. LABORATORY DATA: Labs show a hemoglobin of 15.5, platelet count is 184. Potassium is 4.2, creatinine is 1. Troponins are negative. Lipids are as documented. ASSESSMENT AND PLAN: 1. Precordial chest pain - myocardial infarction ruled out. 2. Sick sinus syndrome, status post permanent pacemaker. PLAN: Ambulate the patient and if she is feeling fine, discharge her home. I will obtain a 2D echo on her today. She will keep her appointment for a stress test. MMODL / IJN: [id number] /
[2022-08-11] MEDS ORDERED: DONEPEZIL 10 MG TAB PO SCH (21:00)
[2022-08-11] MEDS ORDERED: traZODone HCL 50 MG TAB PO SCH (21:00)
--- NOTE | 2022-08-11 21:10 | DS ---
DISCHARGE SUMMARY FINAL DIAGNOSES: 1. Chest pain, myocardial infarction ruled out. 2. Sick sinus syndrome. 3. Anxiety and depression. DISCHARGE DISPOSITION: The patient will be discharged in stable condition with guarded prognosis. Discharge cleared by Cardiology. HISTORY OF PRESENT ILLNESS: This is a 72-year-old woman with history of chest pain, myocardial infarction ruled out. Cardiology saw the patient and recommended outpatient followup. PHYSICAL EXAMINATION: VITAL SIGNS: Stable. CARDIOVASCULAR: S1, S2. ABDOMEN: Soft. The patient will be discharged in stable condition with guarded prognosis with the following advices and medications. Diet, cardiac diet. FOLLOWUP: Follow up with Cardiology as recommended. Follow up with primary physician as recommended. Medications, continue the home medications. See the medication records for list of medications. A 2D echo was done. The report is currently pending. To be followed up with Cardiology for continued followup. ALISHA / ANAN: [id number] /
--- NOTE | 2022-08-12 09:36 | CA ---
Transthoracic Echo Report Name: Alfred Barksdale Age: 72 Gender: F : 1950 Exam Date: 08/11/2022 13:04 Exam Location: [facility] Ht (in): 64 Wt (lb): 134 Ordering Physician: Adriane Mercado Attending/Referring Phys: [id number], Rogelio Director Of Clinical Trials Mary Pascual RDCS Procedure CPT: Indications: LVF Cardiac Hx: Technical Quality: Good Contrast 1: Total Dose (mL): Contrast 2: Total Dose (mL): MEASUREMENTS (Male / Female) Normal Values 2D ECHO LV Diastolic Diameter PLAX 4.0 cm 4.2 - 5.9 / 3.9 - 5.3 cm LV Systolic Diameter PLAX 2.5 cm IVS Diastolic Thickness 1.0 cm 0.6 - 1.0 / 0.6 - 0.9 cm LVPW Diastolic Thickness 1.0 cm 0.6 - 1.0 / 0.6 - 0.9 cm LV Relative Wall Thickness 0.5 RV Internal Dim ED PLAX 3.0 cm LA Systolic Diameter LX 2.7 cm 3.0 - 4.0 / 2.7 - 3.8 cm LV Diastolic Volume MOD 4C 56.7 cm??? LV Systolic Volume MOD 4C 23.1 cm??? LV Ejection Fraction MOD 4C 59.2 % LV Diastolic Length 4C 7.1 cm LV Systolic Length 4C 5.6 cm LV Diastolic Volume MOD 2C 84.3 cm??? LV Systolic Volume MOD 2C 34.5 cm??? LV Ejection Fraction MOD 2C 59.1 % LV Diastolic Length 2C 6.9 cm LV Systolic Length 2C 5.3 cm LA Volume 45.1 cm??? 18 - 58 / 22 - 52 cm??? M-MODE Aortic Root Diameter MM 3.2 cm MV E Point Septal Separation 0.5 cm AV Cusp Separation MM 1.9 cm DOPPLER AV Peak Velocity 167.2 cm/s AV Peak Gradient 11.2 mmHg MV Area PHT 3.8 cm??? Mitral E Point Velocity 104.7 cm/s Mitral A Point Velocity 88.5 cm/s Mitral E to A Ratio 1.2 MV Deceleration Time 202.2 ms TR Peak Velocity 223.9 cm/s TR Peak Gradient 20.1 mmHg Right Ventricular Systolic Press 24.1 mmHg FINDINGS Left Ventricle Left ventricular ejection fraction is estimated at 55-60 %. Left ventricular cavity size normal. Left ventricular wall thickness normal. Right Ventricle Normal right ventricular size and function. Right ventricular systolic pressure within normal limits. Right Atrium Normal right atrial size. Left Atrium Normal left atrial size. Mitral Valve Mitral valve thickened. Mild mitral annular calcification. No mitral stenosis, regurgitation or prolapse. Aortic Valve Trileaflet aortic valve. No aortic valve stenosis or regurgitation. Tricuspid Valve Structurally normal tricuspid valve. Trace to mild tricuspid regurgitation. Pulmonic Valve Structurally normal pulmonic valve. Trace pulmonic regurgitation. Pericardium Normal pericardium. No pericardial effusion. Aorta Normal size aortic root and proximal ascending aorta. CONCLUSIONS Normal LV systolic function Previewed by: Dr. Tenzin Lam MD (Electronically Signed) Final Date: 12 Aug 2022 09:35
== END 2022-08-11 14:56 | disposition home or self-care (01) ==
LOC: EC 10:36 → 6NMEDSUR 13:03
PROVIDERS: ADMIT Internal Medicine; ATTEND Internal Medicine
DX: R07.9 Chest pain, unspecified (principal); I49.5 Sick sinus syndrome; F41.9 Anxiety disorder, unspecified; G24.5 Blepharospasm; M81.0 Age-related osteoporosis without current pathological fracture; H91.90 Unspecified hearing loss, unspecified ear; H40.9 Unspecified glaucoma; Z95.0 Presence of cardiac pacemaker; D75.9 Disease of blood and blood-forming organs, unspecified; L98.9 Disorder of the skin and subcutaneous tissue, unspecified; R48.0 Dyslexia and alexia; Z90.49 Acquired absence of other specified parts of digestive tract; Z98.51 Tubal ligation status; Z98.890 Other specified postprocedural states; F31.9 Bipolar disorder, unspecified; F41.0 Panic disorder [episodic paroxysmal anxiety]; Z80.0 Family history of malignant neoplasm of digestive organs; Z79.899 Other long term (current) drug therapy; Z88.6 Allergy status to analgesic agent
CPT/HCPCS: 96372; 99285; 36415; 93005; 93306; 85379; 80061; 80053; 84443; 84484; 85025; 85610; 85730; 81001; 87086; 71046; G0378 ×2; J1644